=== PATIENT | male | born 1960 | race Two or more races ===

== ENCOUNTER 2016-10-06 19:29 | Observation (INO) | payer OTHER ==
[~2016-10-06] VITALS: Ht 172.7 cm; Wt 83.1 kg
[2016-10-06 19:52] LABS: BASO % 1 % (0-3); EOS % 1 % (0-3); HEMATOCRIT 41.3 % (39.0-53.0); HEMOGLOBIN 14.3 g/dL (13.0-17.5); LYMPH # 1.3 x10^3/uL (1.0-4.8); LYMPH % 20 % (24-48); MEAN CORPUSCULAR HEMOGLOBIN 31 pg (25-35); MEAN CORPUSCULAR HGB CONC 35 g/dL (31-37); MEAN CORPUSCULAR VOLUME 88 fL (79-100); MONO % 5 % (0-9); NEUT % 74 % (31-73); PLATELET COUNT 179 x10^3/uL (140-400); RED BLOOD COUNT 4.68 x10^6/uL (4.30-5.70); RED CELL DISTRIBUTION WIDTH 12.5 % (11.5-14.5); WHITE BLOOD COUNT 6.7 x10^3/uL (4.0-11.0)
[2016-10-06] MEDS ORDERED: IOHEXOL 300 MG/ML 75 ML VIAL IV ONE (20:00)
[2016-10-06 20:07] LABS: CALCIUM 9.1 mg/dL (8.5-10.1); GFR 77.3; POTASSIUM 3.7 mmol/L (3.5-5.1)
[2016-10-06 20:11] LABS: ALBUMIN 4.1 g/dL (3.4-5.0); ALBUMIN/GLOBULIN RATIO 1.1 (1.0-1.7); TOTAL BILIRUBIN 0.8 mg/dL (0.2-1.0)
[2016-10-06] MEDS ORDERED: CONTRAST GIVEN MC PRN (20:15)
--- NOTE | 2016-10-06 20:19 | RAD ---
CT head without intravenous contrast History: Fall, head and neck injury. Comparison: None. Technique: Axial images are obtained of the head from the skull base through the vertex without IV contrast. Exposure: One or more of the following individualized dose reduction techniques were utilized for this examination: 1. Automated exposure control 2. Adjustment of the mA and/or kV according to patient size 3. Use of iterative reconstruction technique Findings: The ventricles are appropriate in size, shape, and location for the patient's age. No obvious intracranial mass, mass-effect, midline shift, hemorrhage or obvious acute infarction is identified. Basilar cisterns are patent. Bone windows demonstrate no acute calvarial abnormality. Incompletely seen is right maxillary sinus disease. Impression: 1. No acute intracranial process. Please note that CT can be relatively insensitive to acute ischemic infarction for up to 24 hours after symptom onset. 2. Paranasal sinus disease. CT cervical spine Comparison: None. Technique: Noncontrast CT of the cervical spine was performed using helical technique. Axial, sagittal, coronal reconstructions were obtained. Exposure: One or more of the following individualized dose reduction techniques were utilized for this examination: 1. Automated exposure control 2. Adjustment of the mA and/or kV according to patient size 3. Use of iterative reconstruction technique Findings: There is no evidence of acute fracture or acute malalignment involving the cervical spine. No prevertebral soft tissue swelling is identified. Mild multilevel degeneration is present with facet and uncovertebral hypertrophy present. Impression: No evidence of acute traumatic injury involving the cervical spine. Electronically signed by: Anthony Contreras MD (10/06/2016 8:16 PM)
[2016-10-06 20:22] LABS: INR 1.1 (0.8-1.1); PROTHROMBIN TIME PATIENT 13.4 SEC (11.7-14.0)
[2016-10-06 20:26] LABS: BARBITURATES NEG (NEG); BENZODIAZEPINES NEG (NEG); CANNABINOIDS NEG (NEG); COCAINE NEG (NEG); METHADONE NEG (NEG); OPIATES NEG (NEG); PHENCYCLIDINE NEG (NEG)
--- NOTE | 2016-10-06 20:39 | RAD ---
CT of the thoracic and lumbar spine History: Trauma, fall from 4-5 feet, pain. Technique: Reconstructions of the thoracic and lumbar spine were made from CT of the chest, abdomen, and pelvis performed with intravenous contrast at the same time. Axial, sagittal, and coronal 2-D reconstructions were obtained of both the thoracic and lumbar spine. Exposure: One or more of the following individualized dose reduction techniques were utilized for this examination: 1. Automated exposure control 2. Adjustment of the mA and/or kV according to patient size 3. Use of iterative reconstruction technique Findings: There is no evidence of acute traumatic injury involving the thoracic spine. Alignment appears anatomic. There are 12 rib-bearing thoracic type vertebral bodies. Multilevel degenerative disc disease is seen with marginal disc osteophytes. There is no evidence of acute traumatic injury involving the lumbar spine. Alignment appears anatomic. There are 5 lumbar-type vertebral bodies. Multilevel facet degeneration is seen. Impression: 1. No evidence of acute traumatic injury to the thoracic or lumbar spine. Electronically signed by: Anthony Contreras MD (10/06/2016 8:36 PM)
--- NOTE | 2016-10-06 20:41 | RAD ---
CT Chest Abdomen Pelvis with Intravenous Contrast: History: Fall from 4-5 foot ladder. Comparison: None. Technique: After administration of intravenous contrast, 75 mL of Omnipaque 300, CT of the chest, abdomen, and pelvis was performed from the lung apices through the ischial tuberosities. Exposure: One or more of the following individualized dose reduction techniques were utilized for this examination: 1. Automated exposure control 2. Adjustment of the mA and/or kV according to patient size 3. Use of iterative reconstruction technique Findings: Evaluation of enteric structures may be limited by lack of oral contrast. There is also streak artifact involving the chest and abdomen secondary to patient's arms which are at his side. Thyroid is symmetric. Trachea and mainstem bronchi appear patent. No mediastinal lymphadenopathy is seen. Thoracic aorta is without evidence of injury. Heart and pericardium are unremarkable. No acute airspace disease is seen. No pneumothorax or pleural effusion is appreciated. Liver, spleen, pancreas, gallbladder, and bilateral adrenal glands are unremarkable. Bilateral kidneys enhance symmetrically. No bowel obstruction or inflammation is identified. Aortic atherosclerosis is seen. Appendix is without evidence of inflammation. Urinary bladder is unremarkable. No free air or free fluid is seen in the abdomen or pelvis. No acute osseous traumatic injury is identified. Impression: No acute traumatic injury identified in the chest, abdomen, or pelvis. Electronically signed by: Anthony Contreras MD (10/06/2016 8:37 PM)
[2016-10-06] MEDS ORDERED: fentaNYL PF VIAL 100 MCG/2 ML VIAL IV ONE (20:45)
[2016-10-06] MEDS ORDERED: ONDANSETRON PF 4 MG/2 ML VIAL. IV ONE (20:45)
--- NOTE | 2016-10-06 21:12 | ED.ADGEN ---
Past Medical History Past Medical History: Other Additional Past Medical Histor: ENCEPHALITIS Past Surgical History: No Surgical History Alcohol Use: None Drug Use: None Adult General Chief Complaint Chief Complaint: TRAUMA ALERT HPI HPI Patient is a 56 year old , alk-Nfgtetr-aficetio female who presents with fall from 6 foot ladder landing on the back of his head with loss of consciousness to 20 minutes according to coworkers. Patient arrives by private vehicle. Patient's GCS on ED arrival is 14. Patient reports headache, neck stiffness, impaired memory. No family weakness or loss of sensation. No chest pain shortness of breath abdominal pain or extremity for me or pain. Past medical history remarkable with exception of encephalitis 4 years ago. She is not on any medications. Additional history obtained from patient spouse via mechanic/welder phone. Review of Systems Review of Systems ROS as per HPI. Current Medications Current Medications Current Medications Medications (Trade) Dose Ordered Sig/Brian Start Time Stop Time Status Last Admin Dose Admin Fentanyl Citrate (Fentanyl 2ml Vial) 75 mcg 1X ONCE 10/06/16 20:45 10/06/16 20:46 DC 10/06/16 20:47 75 MCG Info (Do NOT chart on this entry -- for MONITORING) 1 each PRN DAILY PRN 10/06/16 20:15 10/08/16 20:14 Iohexol (Omnipaque 300 Mg/ml) 75 ml 1X ONCE 10/06/16 20:00 10/06/16 20:03 DC 10/06/16 20:15 75 ML Ondansetron HCl (Zofran) 4 mg 1X ONCE 10/06/16 20:45 10/06/16 20:46 DC 10/06/16 20:47 4 MG Allergies Allergies Allergies Coded Allergies Type Severity Reaction Last Updated Verified No Known Drug Allergies 10/06/16 No Physical Exam Physical Exam Constitutional: Well developed, well nourished, moderate discomfort secondary to pain. HENT: Normocephalic, atraumatic, bilateral external ears normal, oropharynx moist, no oral exudates, nose normal. Eyes: PERRL, pinpoint pupils. Neck: Normal range of motion, diffuse neck pain, tenderness. Cardiovascular:Heart rate regular rhythm, no murmur. Lungs & Thorax: Bilateral breath sounds clear to auscultation. Abdomen: Bowel sounds normal, soft, no tenderness. Skin: Warm, dry. Back: No midline tenderness. Extremities: No deformities. Neurologic: Alert and oriented X 2, normal motor function, normal sensory function, no focal deficits noted. Psychologic: Affect, anxious, tearful. Current Patient Data Vital Signs Vital Signs Date Time Temp Pulse Resp B/P (MAP) Pulse Ox O2 Delivery O2 Flow Rate FiO2 10/06/16 20:47 20 96 Room Air 10/06/16 20:08 76 148/90 (109) 10/06/16 19:33 97.7 97.7 Lab Values Laboratory Tests Test 10/06/16 19:38 10/06/16 20:14 White Blood Count 6.7 x10^3/uL (4.0-11.0) Red Blood Count 4.68 x10^6/uL (4.30-5.70) Hemoglobin 14.3 g/dL (13.0-17.5) Hematocrit 41.3 % (39.0-53.0) Mean Corpuscular Volume 88 fL (79-100) Mean Corpuscular Hemoglobin 31 pg (25-35) Mean Corpuscular Hemoglobin Concent 35 g/dL (31-37) Red Cell Distribution Width 12.5 % (11.5-14.5) Platelet Count 179 x10^3/uL (140-400) Neutrophils (%) (Auto) 74 % (31-73) H Lymphocytes (%) (Auto) 20 % (24-48) L Monocytes (%) (Auto) 5 % (0-9) Eosinophils (%) (Auto) 1 % (0-3) Basophils (%) (Auto) 1 % (0-3) Neutrophils # (Auto) 5.0 x10^3uL (1.8-7.7) Lymphocytes # (Auto) 1.3 x10^3/uL (1.0-4.8) Monocytes # (Auto) 0.3 x10^3/uL (0.0-1.1) Eosinophils # (Auto) 0.1 x10^3/uL (0.0-0.7) Basophils # (Auto) 0.0 x10^3/uL (0.0-0.2) Prothrombin Time 13.4 SEC (11.7-14.0) Prothrombin Time INR 1.1 (0.8-1.1) PTT 29 SEC (24-38) Sodium Level 141 mmol/L (136-145) Potassium Level 3.7 mmol/L (3.5-5.1) Chloride Level 104 mmol/L (98-107) Carbon Dioxide Level 28 mmol/L (21-32) Anion Gap 9 (6-14) Blood Urea Nitrogen 15 mg/dL (8-26) Creatinine 1.0 mg/dL (0.7-1.3) Estimated GFR (Cockcroft-Gault) 77.3 BUN/Creatinine Ratio 15 (6-20) Glucose Level 116 mg/dL (70-99) H Calcium Level 9.1 mg/dL (8.5-10.1) Total Bilirubin 0.8 mg/dL (0.2-1.0) Aspartate Amino Transferase (AST) 28 U/L (15-37) Alanine Aminotransferase (ALT) 45 U/L (16-63) Alkaline Phosphatase 75 U/L (46-116) Total Protein 8.0 g/dL (6.4-8.2) Albumin 4.1 g/dL (3.4-5.0) Albumin/Globulin Ratio 1.1 (1.0-1.7) Ethyl Alcohol Level < 10 mg/dL (0-10) Urine Opiates Screen Neg (NEG) Urine Methadone Screen Neg (NEG) Urine Barbiturates Neg (NEG) Urine Phencyclidine Screen Neg (NEG) Urine Amphetamine/Methamphetamine Neg (NEG) Urine Benzodiazepines Screen Neg (NEG) Urine Cocaine Screen Neg (NEG) Urine Cannabinoids Screen Neg (NEG) Urine Ethyl Alcohol Neg (NEG) Laboratory Tests 10/06/16 19:38 Laboratory Tests 10/06/16 19:38 EKG EKG [] Radiology/Procedures Radiology/Procedures [CT: head/cervical spine/CT chest/abdomen pelvis: No acute injury per radiology report. ] Course & Med Decision Making Course & Med Decision Making Pertinent Labs and Imaging studies reviewed. (See chart for details) [Patient with concussion with persistent retrograde amnesia. CT imaging of head and neck numbness spine, chest abdomen pelvis unremarkable. Pain addressed. Patient will be admitted for serial neuro checks anticipated neurology consultation in the morning if symptoms persist. Case discussed with Dr. Mckeon on-call for general surgery who agrees with plan. Dr. Flores to admit] Kiera Disclaimer Dragon Disclaimer This electronic medical record was generated, in whole or in part, using a voice recognition dictation system. SANCHEZ MENJIVAR DO Oct 06, 2016 21:12
[2016-10-06] MEDS ORDERED: ONDANSETRON PF 4 MG/2 ML VIAL. IV PRN (21:15)
[2016-10-06] MEDS ORDERED: IV DEXTROSE 5 %-0.45 % NACL 1,000 ML IV ONE (21:30)
[2016-10-06] MEDS ORDERED: KETOROLAC 15 MG/ML VIAL. IV ONE (21:30)
--- NOTE | 2016-10-06 22:43 | ACF ---
Admission Forms Criteria ACUTE LOSS OF CONSCIOUSNESS- ALOC Clinical Indications for Inpatient Care (Place 'X' for any and all applicable criteria): Ongoing inpatient care may be needed for ANY ONE of the following(1)(2)(3)(5)(6) : [X]I. Suspected serious etiology (eg, medical disorder, FUR CUTTER event) of mental status change [ ]II. Danger to self or others not manageable at lower level of care [ ]III. Grave disability (eg, inability to perform self care necessary at lower level of care) [ ]IV. Agitation or inappropriate behavior interfering with care for primary condition (eg, attempting to discontinue lines or drains prematurely, unable to cooperate with respiratory care) [ ]V. Delirium [A] [D][E] as described by ANY ONE of the following(26): [ ]a) Delirium due to alcohol or sedative [F] withdrawal [ ]b) Delirium of uncertain etiology that has not responded to appropriate empiric treatment [ ]c) Delirium that prevents performance of a life-sustaining function (eg, feeding or hydrating oneself) [ ]. General contraindications and/or Inappropriate clinical situations for Observational Care in patients with Acute Loss of Consciousness, when ANY ONE of the following is required: [ ]a) Prediction of prolongation of LOS based on ANY ONE of the following may be considered as a contraindication for observational care 2, 3, 4, 5, 6, 7, 8 , 9, 10, 11 [ ]i) Age > 65 yrs. [ ]ii) Patient arriving by ambulance [ ]iii) Patient with high acuity [ ]iv) Patient requiring vital sign monitoring [ ]v) Patient on IV medication [ ]b) Systolic blood pressures 180mmHg 3,12 [ ]c) Patient with altered mental status including delirium and other alteration of consciousness, (3) [ ]d) Patient whose discharge disposition will be to a senior living home or rehabilitation home should not be managed in Emergency Department Observation Unit. CMS rule requires 3 days hospital stay before such placement.3,13 [ ]e) Patient with failure to thrive due to broad array of etiologies 3,16,17 [ ]f) Inability to ambulate 3,14 Extended stay beyond goal length of stay for the primary condition may be needed until ALL of the following are present(3)(5): [ ]a) Underlying medical etiology of mental status change is absent, or has been established and adequately treated [ ]b) Danger to self or others is absent or manageable at lower level of care. [ ]c) Behavior crisis management, including physical or chemical restraints, is not required or available at lower level of car [ ]d) Substance or alcohol withdrawal is absent or manageable at lower level of care. [ ]e) Behavioral symptoms (eg, agitation, somnolence, inappropriate behavior) are absent, or are manageable at lower level of care. The original [facility] Service[employer] content created by [facility] [employer] has been revised. The portions of the content which have been revised are identified through the use of italic text or in bold, and [facility] [employer] has neither reviewed nor approved the modified material. All other unmodified content is copyright [facility] [employer]. Please see references footnoted in the original [facility] [employer] edition 2016 Admission Criteria Met?: Yes PATRICIO CAMACHO Oct 06, 2016 22:43
[2016-10-06 22:45] VITALS: BP 137/83
[2016-10-06] MEDS: fentaNYL PF VIAL 100 MCG/2 ML VIAL IV PRN (22:52)
[2016-10-07] MEDS: fentaNYL PF VIAL 100 MCG/2 ML VIAL IV PRN ×3 (03:29→20:51)
[2016-10-07 03:37] VITALS: BP 144/86
[2016-10-07 04:29] LABS: BASO % 1 % (0-3); EOS % 2 % (0-3); HEMATOCRIT 39.2 % (39.0-53.0); HEMOGLOBIN 13.4 g/dL (13.0-17.5); LYMPH # 1.6 x10^3/uL (1.0-4.8); LYMPH % 30 % (24-48); MEAN CORPUSCULAR HEMOGLOBIN 30 pg (25-35); MEAN CORPUSCULAR HGB CONC 34 g/dL (31-37); MEAN CORPUSCULAR VOLUME 89 fL (79-100); MONO % 6 % (0-9); NEUT % 61 % (31-73); PLATELET COUNT 164 x10^3/uL (140-400); RED BLOOD COUNT 4.41 x10^6/uL (4.30-5.70); RED CELL DISTRIBUTION WIDTH 12.6 % (11.5-14.5); WHITE BLOOD COUNT 5.4 x10^3/uL (4.0-11.0)
[2016-10-07 04:45] LABS: CALCIUM 8.6 mg/dL (8.5-10.1); CREATININE 0.8 mg/dL (0.7-1.3); POTASSIUM 3.7 mmol/L (3.5-5.1)
[2016-10-07 07:00] VITALS: BP 142/83
--- NOTE | 2016-10-07 08:50 | PDOC1 ---
History and Physical Date of Admission Date of Admission DATE: 10/07/16 TIME: 08:48 History of Present Illness History of Present Illness Mr. Alberto, is a 56 year old , grf-Exalhrn-pvrvkhyqkjchb w. confusion after a fall. Was at work on a 6 foot ladder, fell and struck the back of his head with loss of consciousness, possibly 20 min. EMS was not called, some confusion in ER, and amnestic Overnight, headache, neck stiffness, impaired memory He reported a history of encephalitis 4 years ago Past Medical History Cardiovascular: HTN Pulmonary: No pertinent hx GI: No pertinent hx Heme/Onc: No pertinent hx Hepatobiliary: No pertinent hx Psych: No pertinent hx Rheumatologic: No pertinent hx Past Surgical History Past Surgical History: No pertinent history Social History Smoke: No ALCOHOL: none Drugs: None Current Problem List Problem List Problems Medical Problems: (1) Closed head injury with concussion Status: Acute Problems: Current Medications Current Medications Current Medications Iohexol (Omnipaque 300 Mg/ml) 75 ml 1X ONCE IV Last administered on 10/06/16 20:15; Start 10/06/16 at 20:00; Stop 10/06/16 at 20:03; Status DC Info (Do NOT chart on this entry -- for MONITORING) 1 each PRN DAILY PRN MC SEE COMMENTS; Start 10/06/16 at 20:15; Stop 10/08/16 at 20:14 Fentanyl Citrate (Fentanyl 2ml Vial) 75 mcg 1X ONCE IV Last administered on 20:47; Start 10/06/16 at 20:45; Stop 10/06/16 at 20:46; Status DC Ondansetron HCl (Zofran) 4 mg 1X ONCE IV Last administered on 10/06/16 20:47 ; Start 10/06/16 at 20:45; Stop 10/06/16 at 20:46; Status DC Ondansetron HCl (Zofran) 4 mg PRN Q8HRS PRN IV NAUSEA/VOMITING; Start 10/06/16 at 21:15; Stop 10/07/16 at 21:14 Fentanyl Citrate (Fentanyl 2ml Vial) 50 mcg PRN Q2HR PRN IV PAIN Last administered on 10/07/16 08:15; Start 10/06/16 at 21:15; Stop 6/16/17 at 21:14 Ketorolac Tromethamine (Toradol) 15 mg 1X ONCE IV Last administered on 21:34; Start 10/06/16 at 21:30; Stop 10/06/16 at 21:31; Status DC Dextrose/Sodium Chloride 1,000 ml @ 125 mls/hr 1X ONCE IV Last administered on 10/06/16 22:53; Start 10/06/16 at 21:30; Stop 10/07/16 at 05:29; Status DC Allergies Allergies: Coded Allergies: No Known Drug Allergies (Unverified , 10/06/16) ROS General: No: Chills, Night Sweats, Fatigue, Malaise, Appetite, Other PSYCHOLOGICAL ROS: No: Anxiety, Behavioral Disorder, Concentration difficultie , Decreased libido, Depression, Disorientation, Hallucinations, Hostility, Irritablity, Memory difficulties, Mood Swings, Obsessive thoughts, Physical abuse, Sexual abuse, Sleep disturbances, Suicidal ideation, Other Eyes: No Blurry vision, No Decreased vision, No Double vision, No Dry eyes, No Excessive tearing, No Eye Pain, No Itchy Eyes, No Loss of vision, No Photophobia , No Scotomata, No Uses contacts, No Uses glasses, No Other HEENT: YES: Heacaches, No: Visual Changes, Hearing change, Nasal congestion, Nasal discharge, Oral lesions, Sinus pain, Sore Throat, Epistaxis, Sneezing, Snoring, Tinnitus, Vertigo, Vocal changes, Other Respiratory: No: Cough, Hemoptysis, Orthopnea, Pleuritic Pain, Shortness of breath, SOB with excertion, Sputum Changes, Stridor, Tachypnea, Wheezing, Other Gastrointestinal: Yes Nausea, No Vomiting, No Abdominal Pain, No Diarrhea, No Constipation, No Melena, No Hematochezia, No Other Genitourinary: No Dysuria, No Frequency, No Incontinence, No Hematuria, No Retention, No Discharge, No Urgency, No Pain, No Flank Pain, No Other, No , No , No , No , No , No , No Musculoskeletal: No Gait Disturbance, No Joint Pain, No Joint Stiffness, No Joint Swelling, No Muscle Pain, No Muscular Weakness, No Pain In:, No Swelling In:, No Other Neurological: Yes Confusion, Yes Dizziness, Yes Headaches, Yes Memory Loss, No Behavorial Changes, No Bowel/Bladder ControlChng, No Gait Disturbance, No Impaired Coord/balance, No Numbness/Tingling, No Seizures, No Speech Problems, No Tremors, No Visual Changes, No Weakness, No Other Skin: No Dry Skin, No Eczema, No Hair Changes, No Lumps, No Mole Changes, No Mottling, No Nail Changes, No Pruritus, No Rash, No Skin Lesion Changes, No Other, No Acne Physical Exam General: Alert, Oriented X3, Cooperative HEENT: Atraumatic, PERRLA, EOMI, Mucous membr. moist/pink Lungs: Normal air movement Heart: no gallops, no murmurs Extremities: No clubbing, No edema Skin: No rashes, No significant lesion Neuro: Normal gait, Normal speech, Normal tone, Cranial nerves 3-12 NL Psych/Mental Status: Mood NL Vitals Vitals Vital Signs Date Time Temp Pulse Resp B/P (MAP) Pulse Ox O2 Delivery O2 Flow Rate FiO2 10/07/16 08:15 96 Room Air 10/07/16 07:00 98.0 59 18 142/83 (102) 98.0 Labs Labs Laboratory Tests Test 10/06/16 19:38 10/06/16 20:14 10/07/16 04:00 White Blood Count 6.7 x10^3/uL (4.0-11.0) 5.4 x10^3/uL (4.0-11.0) Red Blood Count 4.68 x10^6/uL (4.30-5.70) 4.41 x10^6/uL (4.30-5.70) Hemoglobin 14.3 g/dL (13.0-17.5) 13.4 g/dL (13.0-17.5) Hematocrit 41.3 % (39.0-53.0) 39.2 % (39.0-53.0) Mean Corpuscular Volume 88 fL (79-100) 89 fL (79-100) Mean Corpuscular Hemoglobin 31 pg (25-35) 30 pg (25-35) Mean Corpuscular Hemoglobin Concent 35 g/dL (31-37) 34 g/dL (31-37) Red Cell Distribution Width 12.5 % (11.5-14.5) 12.6 % (11.5-14.5) Platelet Count 179 x10^3/uL (140-400) 164 x10^3/uL (140-400) Neutrophils (%) (Auto) 74 % (31-73) 61 % (31-73) Lymphocytes (%) (Auto) 20 % (24-48) 30 % (24-48) Monocytes (%) (Auto) 5 % (0-9) 6 % (0-9) Eosinophils (%) (Auto) 1 % (0-3) 2 % (0-3) Basophils (%) (Auto) 1 % (0-3) 1 % (0-3) Neutrophils # (Auto) 5.0 x10^3uL (1.8-7.7) 3.3 x10^3uL (1.8-7.7) Lymphocytes # (Auto) 1.3 x10^3/uL (1.0-4.8) 1.6 x10^3/uL (1.0-4.8) Monocytes # (Auto) 0.3 x10^3/uL (0.0-1.1) 0.3 x10^3/uL (0.0-1.1) Eosinophils # (Auto) 0.1 x10^3/uL (0.0-0.7) 0.1 x10^3/uL (0.0-0.7) Basophils # (Auto) 0.0 x10^3/uL (0.0-0.2) 0.0 x10^3/uL (0.0-0.2) Prothrombin Time 13.4 SEC (11.7-14.0) Prothromb Time International Ratio 1.1 (0.8-1.1) Activated Partial Thromboplast Time 29 SEC (24-38) Sodium Level 141 mmol/L (136-145) 140 mmol/L (136-145) Potassium Level 3.7 mmol/L (3.5-5.1) 3.7 mmol/L (3.5-5.1) Chloride Level 104 mmol/L (98-107) 105 mmol/L (98-107) Carbon Dioxide Level 28 mmol/L (21-32) 28 mmol/L (21-32) Anion Gap 9 (6-14) 7 (6-14) Blood Urea Nitrogen 15 mg/dL (8-26) 15 mg/dL (8-26) Creatinine 1.0 mg/dL (0.7-1.3) 0.8 mg/dL (0.7-1.3) Estimated GFR (Cockcroft-Gault) 77.3 100.0 BUN/Creatinine Ratio 15 (6-20) Glucose Level 116 mg/dL (70-99) 150 mg/dL (70-99) Calcium Level 9.1 mg/dL (8.5-10.1) 8.6 mg/dL (8.5-10.1) Total Bilirubin 0.8 mg/dL (0.2-1.0) Aspartate Amino Transf (AST/SGOT) 28 U/L (15-37) Alanine Aminotransferase (ALT/SGPT) 45 U/L (16-63) Alkaline Phosphatase 75 U/L (46-116) Total Protein 8.0 g/dL (6.4-8.2) Albumin 4.1 g/dL (3.4-5.0) Albumin/Globulin Ratio 1.1 (1.0-1.7) Ethyl Alcohol Level < 10 mg/dL (0-10) Urine Opiates Screen Neg (NEG) Urine Methadone Screen Neg (NEG) Urine Barbiturates Neg (NEG) Urine Phencyclidine Screen Neg (NEG) Urine Amphetamine/Methamphetamine Neg (NEG) Urine Benzodiazepines Screen Neg (NEG) Urine Cocaine Screen Neg (NEG) Urine Cannabinoids Screen Neg (NEG) Urine Ethyl Alcohol Neg (NEG) Laboratory Tests Test 10/06/16 19:38 10/06/16 20:14 10/07/16 04:00 White Blood Count 6.7 x10^3/uL (4.0-11.0) 5.4 x10^3/uL (4.0-11.0) Red Blood Count 4.68 x10^6/uL (4.30-5.70) 4.41 x10^6/uL (4.30-5.70) Hemoglobin 14.3 g/dL (13.0-17.5) 13.4 g/dL (13.0-17.5) Hematocrit 41.3 % (39.0-53.0) 39.2 % (39.0-53.0) Mean Corpuscular Volume 88 fL (79-100) 89 fL (79-100) Mean Corpuscular Hemoglobin 31 pg (25-35) 30 pg (25-35) Mean Corpuscular Hemoglobin Concent 35 g/dL (31-37) 34 g/dL (31-37) Red Cell Distribution Width 12.5 % (11.5-14.5) 12.6 % (11.5-14.5) Platelet Count 179 x10^3/uL (140-400) 164 x10^3/uL (140-400) Neutrophils (%) (Auto) 74 % (31-73) 61 % (31-73) Lymphocytes (%) (Auto) 20 % (24-48) 30 % (24-48) Monocytes (%) (Auto) 5 % (0-9) 6 % (0-9) Eosinophils (%) (Auto) 1 % (0-3) 2 % (0-3) Basophils (%) (Auto) 1 % (0-3) 1 % (0-3) Neutrophils # (Auto) 5.0 x10^3uL (1.8-7.7) 3.3 x10^3uL (1.8-7.7) Lymphocytes # (Auto) 1.3 x10^3/uL (1.0-4.8) 1.6 x10^3/uL (1.0-4.8) Monocytes # (Auto) 0.3 x10^3/uL (0.0-1.1) 0.3 x10^3/uL (0.0-1.1) Eosinophils # (Auto) 0.1 x10^3/uL (0.0-0.7) 0.1 x10^3/uL (0.0-0.7) Basophils # (Auto) 0.0 x10^3/uL (0.0-0.2) 0.0 x10^3/uL (0.0-0.2) Prothrombin Time 13.4 SEC (11.7-14.0) Prothromb Time International Ratio 1.1 (0.8-1.1) Activated Partial Thromboplast Time 29 SEC (24-38) Sodium Level 141 mmol/L (136-145) 140 mmol/L (136-145) Potassium Level 3.7 mmol/L (3.5-5.1) 3.7 mmol/L (3.5-5.1) Chloride Level 104 mmol/L (98-107) 105 mmol/L (98-107) Carbon Dioxide Level 28 mmol/L (21-32) 28 mmol/L (21-32) Anion Gap 9 (6-14) 7 (6-14) Blood Urea Nitrogen 15 mg/dL (8-26) 15 mg/dL (8-26) Creatinine 1.0 mg/dL (0.7-1.3) 0.8 mg/dL (0.7-1.3) Estimated GFR (Cockcroft-Gault) 77.3 100.0 BUN/Creatinine Ratio 15 (6-20) Glucose Level 116 mg/dL (70-99) 150 mg/dL (70-99) Calcium Level 9.1 mg/dL (8.5-10.1) 8.6 mg/dL (8.5-10.1) Total Bilirubin 0.8 mg/dL (0.2-1.0) Aspartate Amino Transf (AST/SGOT) 28 U/L (15-37) Alanine Aminotransferase (ALT/SGPT) 45 U/L (16-63) Alkaline Phosphatase 75 U/L (46-116) Total Protein 8.0 g/dL (6.4-8.2) Albumin 4.1 g/dL (3.4-5.0) Albumin/Globulin Ratio 1.1 (1.0-1.7) Ethyl Alcohol Level < 10 mg/dL (0-10) Urine Opiates Screen Neg (NEG) Urine Methadone Screen Neg (NEG) Urine Barbiturates Neg (NEG) Urine Phencyclidine Screen Neg (NEG) Urine Amphetamine/Methamphetamine Neg (NEG) Urine Benzodiazepines Screen Neg (NEG) Urine Cocaine Screen Neg (NEG) Urine Cannabinoids Screen Neg (NEG) Urine Ethyl Alcohol Neg (NEG) VTE Prophylaxis Ordered VTE Prophylaxis Devices: No VTE Pharmacological Prophylaxi: Yes Assessment/Plan Assessment/Plan fall from ladder, head injury, concussion, headache, pain control neuro consult for post-concussive syndrome Trauma team to [facility] pt feels improved NEEMA HILL MD Oct 07, 2016 08:50
[2016-10-07 11:00] VITALS: BP 130/78
[2016-10-07] MEDS: oxyCODONE/APAP 5/325 1 TAB TABLET PO PRN ×2 (11:51→19:02)
--- NOTE | 2016-10-07 11:53 | PDOC2 ---
CONSULT Date of Consult Date of Consult DATE: 10/07/16 TIME: 11:46 Reason for Consult Reason for Consult: trauma Referring Physician Referring Physician: ER Identification/Chief Complaint Chief Complaint fall Source Source: Chart review, Patient History of Present Illness Reason for Visit: Nursing staff provided interpretation for patient Fall from ladder, hit head, + LOC for 20 minutes He reports continued dull pain to top of head, neck, shoulders, and mid back + nausea, some worsening of his blurred vision no abdominal pain Past Medical History Cardiovascular: HTN Pulmonary: No pertinent hx GI: No pertinent hx Heme/Onc: No pertinent hx Hepatobiliary: No pertinent hx Psych: No pertinent hx Rheumatologic: No pertinent hx Past Surgical History Past Surgical History: No pertinent history Family History Family History: Family History Unknown Social History No ALCOHOL: none Drugs: None Current Problem List Problem List Problems Medical Problems: (1) Closed head injury with concussion Status: Acute Current Medications Current Medications Current Medications Iohexol (Omnipaque 300 Mg/ml) 75 ml 1X ONCE IV Last administered on 10/06/16 20:15; Start 10/06/16 at 20:00; Stop 10/06/16 at 20:03; Status DC Info (Do NOT chart on this entry -- for MONITORING) 1 each PRN DAILY PRN MC SEE COMMENTS; Start 10/06/16 at 20:15; Stop 10/08/16 at 20:14 Fentanyl Citrate (Fentanyl 2ml Vial) 75 mcg 1X ONCE IV Last administered on 20:47; Start 10/06/16 at 20:45; Stop 10/06/16 at 20:46; Status DC Ondansetron HCl (Zofran) 4 mg 1X ONCE IV Last administered on 10/06/16 20:47 ; Start 10/06/16 at 20:45; Stop 10/06/16 at 20:46; Status DC Ondansetron HCl (Zofran) 4 mg PRN Q8HRS PRN IV NAUSEA/VOMITING; Start 10/06/16 at 21:15; Stop 10/07/16 at 21:14 Fentanyl Citrate (Fentanyl 2ml Vial) 50 mcg PRN Q2HR PRN IV PAIN Last administered on 10/07/16 08:15; Start 10/06/16 at 21:15; Stop 10/07/16 at 21:14 Ketorolac Tromethamine (Toradol) 15 mg 1X ONCE IV Last administered on 21:34; Start 10/06/16 at 21:30; Stop 10/06/16 at 21:31; Status DC Dextrose/Sodium Chloride 1,000 ml @ 125 mls/hr 1X ONCE IV Last administered on 10/06/16 22:53; Start 10/06/16 at 21:30; Stop 10/07/16 at 05:29; Status DC Oxycodone/ Acetaminophen (Percocet 5/325) 1 tab PRN Q4HRS PRN PO PAIN; Start at 09:15 Allergies Allergies: Coded Allergies: No Known Drug Allergies (Unverified , 10/06/16) ROS General: No: Chills, Other (fevers) PSYCHOLOGICAL ROS: No: Anxiety, Depression Eyes: Yes Blurry vision, No Loss of vision HEENT: YES: Heacaches, Hearing change (feels clogged ), No: Sore Throat Hematological and Lymphatic: No: Bleeding Problems, Blood Clots Respiratory: No: Cough, Shortness of breath Cardiovascular: No Chest Pain, No Palpitations Gastrointestinal: Yes Nausea, No Abdominal Pain Genitourinary: No Dysuria, No Hematuria Musculoskeletal: Yes Joint Pain, Yes Muscle Pain, Yes Other (see hpi) Neurological: Yes Headaches, Yes Numbness/Tingling (upper extremities ) Skin: No Pruritus, No Rash Physical Exam General: Alert, Oriented X3, Cooperative, No acute distress HEENT: Atraumatic, PERRLA, Mucous membr. moist/pink Lungs: Clear to auscultation, Normal air movement Heart: Regular rate, Normal S1, Normal S2, No murmurs Abdomen: Normal bowel sounds, Soft, No tenderness Extremities: No clubbing, No cyanosis Neuro: Other (decreased strength to BUEs, reports it causes pain to his neck to squeeze hands, decreased sensation to BUE, normal strenght and sensation to BLEs) Psych/Mental Status: Mental status NL, Mood NL Vitals VITALS Vital Signs Date Time Temp Pulse Resp B/P (MAP) Pulse Ox O2 Delivery O2 Flow Rate FiO2 10/07/16 11:00 98.1 68 18 130/78 (95) 93 Room Air 98.1 Labs Labs Laboratory Tests Test 10/06/16 19:38 10/06/16 20:14 10/07/16 04:00 White Blood Count 6.7 x10^3/uL (4.0-11.0) 5.4 x10^3/uL (4.0-11.0) Red Blood Count 4.68 x10^6/uL (4.30-5.70) 4.41 x10^6/uL (4.30-5.70) Hemoglobin 14.3 g/dL (13.0-17.5) 13.4 g/dL (13.0-17.5) Hematocrit 41.3 % (39.0-53.0) 39.2 % (39.0-53.0) Mean Corpuscular Volume 88 fL (79-100) 89 fL (79-100) Mean Corpuscular Hemoglobin 31 pg (25-35) 30 pg (25-35) Mean Corpuscular Hemoglobin Concent 35 g/dL (31-37) 34 g/dL (31-37) Red Cell Distribution Width 12.5 % (11.5-14.5) 12.6 % (11.5-14.5) Platelet Count 179 x10^3/uL (140-400) 164 x10^3/uL (140-400) Neutrophils (%) (Auto) 74 % (31-73) 61 % (31-73) Lymphocytes (%) (Auto) 20 % (24-48) 30 % (24-48) Monocytes (%) (Auto) 5 % (0-9) 6 % (0-9) Eosinophils (%) (Auto) 1 % (0-3) 2 % (0-3) Basophils (%) (Auto) 1 % (0-3) 1 % (0-3) Neutrophils # (Auto) 5.0 x10^3uL (1.8-7.7) 3.3 x10^3uL (1.8-7.7) Lymphocytes # (Auto) 1.3 x10^3/uL (1.0-4.8) 1.6 x10^3/uL (1.0-4.8) Monocytes # (Auto) 0.3 x10^3/uL (0.0-1.1) 0.3 x10^3/uL (0.0-1.1) Eosinophils # (Auto) 0.1 x10^3/uL (0.0-0.7) 0.1 x10^3/uL (0.0-0.7) Basophils # (Auto) 0.0 x10^3/uL (0.0-0.2) 0.0 x10^3/uL (0.0-0.2) Prothrombin Time 13.4 SEC (11.7-14.0) Prothromb Time International Ratio 1.1 (0.8-1.1) Activated Partial Thromboplast Time 29 SEC (24-38) Sodium Level 141 mmol/L (136-145) 140 mmol/L (136-145) Potassium Level 3.7 mmol/L (3.5-5.1) 3.7 mmol/L (3.5-5.1) Chloride Level 104 mmol/L (98-107) 105 mmol/L (98-107) Carbon Dioxide Level 28 mmol/L (21-32) 28 mmol/L (21-32) Anion Gap 9 (6-14) 7 (6-14) Blood Urea Nitrogen 15 mg/dL (8-26) 15 mg/dL (8-26) Creatinine 1.0 mg/dL (0.7-1.3) 0.8 mg/dL (0.7-1.3) Estimated GFR (Cockcroft-Gault) 77.3 100.0 BUN/Creatinine Ratio 15 (6-20) Glucose Level 116 mg/dL (70-99) 150 mg/dL (70-99) Calcium Level 9.1 mg/dL (8.5-10.1) 8.6 mg/dL (8.5-10.1) Total Bilirubin 0.8 mg/dL (0.2-1.0) Aspartate Amino Transf (AST/SGOT) 28 U/L (15-37) Alanine Aminotransferase (ALT/SGPT) 45 U/L (16-63) Alkaline Phosphatase 75 U/L (46-116) Total Protein 8.0 g/dL (6.4-8.2) Albumin 4.1 g/dL (3.4-5.0) Albumin/Globulin Ratio 1.1 (1.0-1.7) Ethyl Alcohol Level < 10 mg/dL (0-10) Urine Opiates Screen Neg (NEG) Urine Methadone Screen Neg (NEG) Urine Barbiturates Neg (NEG) Urine Phencyclidine Screen Neg (NEG) Urine Amphetamine/Methamphetamine Neg (NEG) Urine Benzodiazepines Screen Neg (NEG) Urine Cocaine Screen Neg (NEG) Urine Cannabinoids Screen Neg (NEG) Urine Ethyl Alcohol Neg (NEG) Laboratory Tests Test 10/06/16 19:38 10/06/16 20:14 10/07/16 04:00 White Blood Count 6.7 x10^3/uL (4.0-11.0) 5.4 x10^3/uL (4.0-11.0) Red Blood Count 4.68 x10^6/uL (4.30-5.70) 4.41 x10^6/uL (4.30-5.70) Hemoglobin 14.3 g/dL (13.0-17.5) 13.4 g/dL (13.0-17.5) Hematocrit 41.3 % (39.0-53.0) 39.2 % (39.0-53.0) Mean Corpuscular Volume 88 fL (79-100) 89 fL (79-100) Mean Corpuscular Hemoglobin 31 pg (25-35) 30 pg (25-35) Mean Corpuscular Hemoglobin Concent 35 g/dL (31-37) 34 g/dL (31-37) Red Cell Distribution Width 12.5 % (11.5-14.5) 12.6 % (11.5-14.5) Platelet Count 179 x10^3/uL (140-400) 164 x10^3/uL (140-400) Neutrophils (%) (Auto) 74 % (31-73) 61 % (31-73) Lymphocytes (%) (Auto) 20 % (24-48) 30 % (24-48) Monocytes (%) (Auto) 5 % (0-9) 6 % (0-9) Eosinophils (%) (Auto) 1 % (0-3) 2 % (0-3) Basophils (%) (Auto) 1 % (0-3) 1 % (0-3) Neutrophils # (Auto) 5.0 x10^3uL (1.8-7.7) 3.3 x10^3uL (1.8-7.7) Lymphocytes # (Auto) 1.3 x10^3/uL (1.0-4.8) 1.6 x10^3/uL (1.0-4.8) Monocytes # (Auto) 0.3 x10^3/uL (0.0-1.1) 0.3 x10^3/uL (0.0-1.1) Eosinophils # (Auto) 0.1 x10^3/uL (0.0-0.7) 0.1 x10^3/uL (0.0-0.7) Basophils # (Auto) 0.0 x10^3/uL (0.0-0.2) 0.0 x10^3/uL (0.0-0.2) Prothrombin Time 13.4 SEC (11.7-14.0) Prothromb Time International Ratio 1.1 (0.8-1.1) Activated Partial Thromboplast Time 29 SEC (24-38) Sodium Level 141 mmol/L (136-145) 140 mmol/L (136-145) Potassium Level 3.7 mmol/L (3.5-5.1) 3.7 mmol/L (3.5-5.1) Chloride Level 104 mmol/L (98-107) 105 mmol/L (98-107) Carbon Dioxide Level 28 mmol/L (21-32) 28 mmol/L (21-32) Anion Gap 9 (6-14) 7 (6-14) Blood Urea Nitrogen 15 mg/dL (8-26) 15 mg/dL (8-26) Creatinine 1.0 mg/dL (0.7-1.3) 0.8 mg/dL (0.7-1.3) Estimated GFR (Cockcroft-Gault) 77.3 100.0 BUN/Creatinine Ratio 15 (6-20) Glucose Level 116 mg/dL (70-99) 150 mg/dL (70-99) Calcium Level 9.1 mg/dL (8.5-10.1) 8.6 mg/dL (8.5-10.1) Total Bilirubin 0.8 mg/dL (0.2-1.0) Aspartate Amino Transf (AST/SGOT) 28 U/L (15-37) Alanine Aminotransferase (ALT/SGPT) 45 U/L (16-63) Alkaline Phosphatase 75 U/L (46-116) Total Protein 8.0 g/dL (6.4-8.2) Albumin 4.1 g/dL (3.4-5.0) Albumin/Globulin Ratio 1.1 (1.0-1.7) Ethyl Alcohol Level < 10 mg/dL (0-10) Urine Opiates Screen Neg (NEG) Urine Methadone Screen Neg (NEG) Urine Barbiturates Neg (NEG) Urine Phencyclidine Screen Neg (NEG) Urine Amphetamine/Methamphetamine Neg (NEG) Urine Benzodiazepines Screen Neg (NEG) Urine Cocaine Screen Neg (NEG) Urine Cannabinoids Screen Neg (NEG) Urine Ethyl Alcohol Neg (NEG) Images Images no acute findings on imaging Assessment/Plan Assessment/Plan trauma, closed head injury, fall from ladder, continued neck pain, decreased motor function to BUE's no gen surg needs will consult neurosurgery for evaluation WILLIAN MARQUES APRN Oct 07, 2016 11:53
--- NOTE | 2016-10-07 12:38 | PDOC ---
SUBJECTIVE Subjective Pt seen/examined. Full consult to follow. 56M with BUE tingling s/p fall from ladder -CT negative for fracture -will check MRI c-spine OBJECTIVE Vital Signs Vital Signs Date Time Temp Pulse Resp B/P (MAP) Pulse Ox O2 Delivery O2 Flow Rate FiO2 10/07/16 11:51 93 Room Air 10/07/16 11:00 98.1 68 18 130/78 (95) 93 Room Air 98.1 10/07/16 09:20 96 Room Air 10/07/16 08:15 96 Room Air 10/07/16 08:00 Room Air 10/07/16 07:00 98.0 59 18 142/83 (102) 96 Room Air 98.0 10/07/16 03:37 97.7 59 16 144/86 (105) 95 Room Air 97.7 10/07/16 03:29 Room Air 10/07/16 00:02 Room Air 10/06/16 23:09 Room Air 10/06/16 22:52 Room Air 10/06/16 22:45 98.1 65 16 137/83 (101) 95 Room Air 98.1 10/06/16 22:31 64 16 131/82 (98) 94 Room Air 10/06/16 22:23 64 16 130/80 (97) 95 Room Air 10/06/16 22:08 66 13 129/78 (95) 94 Room Air 10/06/16 21:53 68 14 134/78 (96) 93 Room Air 10/06/16 21:38 66 14 123/75 (91) 93 Room Air 10/06/16 21:23 68 12 128/79 (95) 93 Room Air 10/06/16 21:08 70 12 128/80 (96) 91 Room Air 10/06/16 20:53 73 13 150/89 (109) 90 Room Air 10/06/16 20:47 20 96 Room Air 10/06/16 20:38 68 14 137/83 (101) 98 Room Air 10/06/16 20:23 68 22 144/88 (106) 97 Room Air 10/06/16 20:08 76 17 148/90 (109) 96 Room Air 10/06/16 19:53 74 17 140/94 (109) 95 Room Air 10/06/16 19:33 97.7 68 20 155/97 (116) 94 Room Air 97.7 I & O Intake and Output 10/07/16 07:00 Intake Total 0 ml Output Total 300 ml Balance -300 ml Intake Oral 0 ml Output Urine Total 300 ml COMMENT Lab Laboratory Tests Test 10/06/16 19:38 10/06/16 20:14 10/07/16 04:00 White Blood Count 6.7 x10^3/uL (4.0-11.0) 5.4 x10^3/uL (4.0-11.0) Red Blood Count 4.68 x10^6/uL (4.30-5.70) 4.41 x10^6/uL (4.30-5.70) Hemoglobin 14.3 g/dL (13.0-17.5) 13.4 g/dL (13.0-17.5) Hematocrit 41.3 % (39.0-53.0) 39.2 % (39.0-53.0) Mean Corpuscular Volume 88 fL (79-100) 89 fL (79-100) Mean Corpuscular Hemoglobin 31 pg (25-35) 30 pg (25-35) Mean Corpuscular Hemoglobin Concent 35 g/dL (31-37) 34 g/dL (31-37) Red Cell Distribution Width 12.5 % (11.5-14.5) 12.6 % (11.5-14.5) Platelet Count 179 x10^3/uL (140-400) 164 x10^3/uL (140-400) Neutrophils (%) (Auto) 74 % (31-73) 61 % (31-73) Lymphocytes (%) (Auto) 20 % (24-48) 30 % (24-48) Monocytes (%) (Auto) 5 % (0-9) 6 % (0-9) Eosinophils (%) (Auto) 1 % (0-3) 2 % (0-3) Basophils (%) (Auto) 1 % (0-3) 1 % (0-3) Neutrophils # (Auto) 5.0 x10^3uL (1.8-7.7) 3.3 x10^3uL (1.8-7.7) Lymphocytes # (Auto) 1.3 x10^3/uL (1.0-4.8) 1.6 x10^3/uL (1.0-4.8) Monocytes # (Auto) 0.3 x10^3/uL (0.0-1.1) 0.3 x10^3/uL (0.0-1.1) Eosinophils # (Auto) 0.1 x10^3/uL (0.0-0.7) 0.1 x10^3/uL (0.0-0.7) Basophils # (Auto) 0.0 x10^3/uL (0.0-0.2) 0.0 x10^3/uL (0.0-0.2) Prothrombin Time 13.4 SEC (11.7-14.0) Prothromb Time International Ratio 1.1 (0.8-1.1) Activated Partial Thromboplast Time 29 SEC (24-38) Sodium Level 141 mmol/L (136-145) 140 mmol/L (136-145) Potassium Level 3.7 mmol/L (3.5-5.1) 3.7 mmol/L (3.5-5.1) Chloride Level 104 mmol/L (98-107) 105 mmol/L (98-107) Carbon Dioxide Level 28 mmol/L (21-32) 28 mmol/L (21-32) Anion Gap 9 (6-14) 7 (6-14) Blood Urea Nitrogen 15 mg/dL (8-26) 15 mg/dL (8-26) Creatinine 1.0 mg/dL (0.7-1.3) 0.8 mg/dL (0.7-1.3) Estimated GFR (Cockcroft-Gault) 77.3 100.0 BUN/Creatinine Ratio 15 (6-20) Glucose Level 116 mg/dL (70-99) 150 mg/dL (70-99) Calcium Level 9.1 mg/dL (8.5-10.1) 8.6 mg/dL (8.5-10.1) Total Bilirubin 0.8 mg/dL (0.2-1.0) Aspartate Amino Transf (AST/SGOT) 28 U/L (15-37) Alanine Aminotransferase (ALT/SGPT) 45 U/L (16-63) Alkaline Phosphatase 75 U/L (46-116) Total Protein 8.0 g/dL (6.4-8.2) Albumin 4.1 g/dL (3.4-5.0) Albumin/Globulin Ratio 1.1 (1.0-1.7) Ethyl Alcohol Level < 10 mg/dL (0-10) Urine Opiates Screen Neg (NEG) Urine Methadone Screen Neg (NEG) Urine Barbiturates Neg (NEG) Urine Phencyclidine Screen Neg (NEG) Urine Amphetamine/Methamphetamine Neg (NEG) Urine Benzodiazepines Screen Neg (NEG) Urine Cocaine Screen Neg (NEG) Urine Cannabinoids Screen Neg (NEG) Urine Ethyl Alcohol Neg (NEG) NATALIO BLANCA MD Oct 07, 2016 12:38
--- NOTE | 2016-10-07 14:49 | PDOC2 ---
NEUROLOGY CONSULT Date of Admission Date of Admission DATE: 10/07/16 TIME: 14:41 Reason for Consult Reason for Consult: IMPRESSION: Concussion. Headache. Neck pain Decreased sensory in UE and chest. RECOMMENDATIONS/PLAN: C-spine MRI w/wo contrast. Pain control. Consulted Neurosurgery. OT/PT HISTORY OF THE PRESENT ILLNESS: 56-y-old [place] origin male patient had a fall from ladder. He stated he lost consciousness for about 10 to 20 minutes. He said he did not remember symptoms whether he had as syncope, dizziness, black out, etc. before falling. His HCT, CCT, TCT and LCT are all normal. No vomiting reported. No urinary or bowel dysfunction. No motor deficits. PAST MEDICAL HISTORY: Please see above. PAST SURGERY HISTORY: No major surgery recently. ALLERGY: Unknown MEDICATIONS: Refer to [facility] FAMILY HISTORY: Non contributory. SOCIAL HISTORY: Lives at home. Denies current smoking, drinking, and illicit drug use. REVIEW OF SYSTEMS: Constitutional: No malnutrition, weight loss, cachexia. Head: No traumatic brain or head injury. Skin: No edema, or rash. Ear: No infection. Eyes: No vision loss or color blindness. Nose: No bleeding or purulent discharges. Hearing: No hearing decrease. Neck: No injury. Cardiac: No DE, arrhythmia. Pulmonary: No COPD. GI: No GI ulcer, GI bleeding. Urinary/genital: No dysuria, incontinence, urinary retention. Endocrinologic: No cousin face, craniofacial dysmorphism, polydactyly. Skeletomuscular: No muscular atrophy, deformity. Neurological: see HP. Psychiatric: Denies drug use/abuse. Otherwise, not [id number] review of systems. PHYSICAL EXAMINATION: General appearance is in subacute distress. HEENT: Normocephalic and nontraumatic. Eyes, nose, ears, and throat are unremarkable. Neck is supple. No lymphadenopathy. No bruits are heard over the carotid artery. No crepitus. Cardiovascular: S1, S2, regular rate and rhythm. Pulmonary: Clear to auscultation bilaterally. Abdomen: Bowel sounds are positive. Extremities: No rash, lesions, or edema. No restriction of range of motion NEUROLOGICAL EXAMINATION: Alert Oriented to time, place and person. PERRL. EOMI. CN: no focal findings. Muscle tone: within normal. Muscle strength: 5 DTR: 2- Plantar reflex: Flexor response bilaterally Gait: not examined in bed. Sensory exam: Decreased to light touch and vibration sense in UE and chest area. Normal in lower abdomen and LE. No cerebellar signs elicited. F-T-N test fine. Current Medications Current Medications Current Medications Iohexol (Omnipaque 300 Mg/ml) 75 ml 1X ONCE IV Last administered on 10/06/16 20:15; Start 10/06/16 at 20:00; Stop 10/06/16 at 20:03; Status DC Info (Do NOT chart on this entry -- for MONITORING) 1 each PRN DAILY PRN MC SEE COMMENTS; Start 10/06/16 at 20:15; Stop 10/08/16 at 20:14 Fentanyl Citrate (Fentanyl 2ml Vial) 75 mcg 1X ONCE IV Last administered on 20:47; Start 10/06/16 at 20:45; Stop 10/06/16 at 20:46; Status DC Ondansetron HCl (Zofran) 4 mg 1X ONCE IV Last administered on 10/06/16 20:47 ; Start 10/06/16 at 20:45; Stop 10/06/16 at 20:46; Status DC Ondansetron HCl (Zofran) 4 mg PRN Q8HRS PRN IV NAUSEA/VOMITING; Start 10/06/16 at 21:15; Stop 10/07/16 at 21:14 Fentanyl Citrate (Fentanyl 2ml Vial) 50 mcg PRN Q2HR PRN IV PAIN Last administered on 10/07/16 08:15; Start 10/06/16 at 21:15; Stop 10/07/16 at 21:14 Ketorolac Tromethamine (Toradol) 15 mg 1X ONCE IV Last administered on 21:34; Start 10/06/16 at 21:30; Stop 10/06/16 at 21:31; Status DC Dextrose/Sodium Chloride 1,000 ml @ 125 mls/hr 1X ONCE IV Last administered on 10/06/16 22:53; Start 10/06/16 at 21:30; Stop 10/07/16 at 05:29; Status DC Oxycodone/ Acetaminophen (Percocet 5/325) 1 tab PRN Q4HRS PRN PO PAIN Last administered on 10/07/16 11:51; Start 10/07/16 at 09:15 Allergies Allergies: Coded Allergies: No Known Drug Allergies (Unverified , 10/06/16) Vitals VITALS Vital Signs Date Time Temp Pulse Resp B/P (MAP) Pulse Ox O2 Delivery O2 Flow Rate FiO2 10/07/16 12:57 93 Room Air 10/07/16 11:00 98.1 68 18 130/78 (95) 98.1 Labs Labs Laboratory Tests Test 10/06/16 19:38 10/06/16 20:14 10/07/16 04:00 White Blood Count 6.7 x10^3/uL (4.0-11.0) 5.4 x10^3/uL (4.0-11.0) Red Blood Count 4.68 x10^6/uL (4.30-5.70) 4.41 x10^6/uL (4.30-5.70) Hemoglobin 14.3 g/dL (13.0-17.5) 13.4 g/dL (13.0-17.5) Hematocrit 41.3 % (39.0-53.0) 39.2 % (39.0-53.0) Mean Corpuscular Volume 88 fL (79-100) 89 fL (79-100) Mean Corpuscular Hemoglobin 31 pg (25-35) 30 pg (25-35) Mean Corpuscular Hemoglobin Concent 35 g/dL (31-37) 34 g/dL (31-37) Red Cell Distribution Width 12.5 % (11.5-14.5) 12.6 % (11.5-14.5) Platelet Count 179 x10^3/uL (140-400) 164 x10^3/uL (140-400) Neutrophils (%) (Auto) 74 % (31-73) 61 % (31-73) Lymphocytes (%) (Auto) 20 % (24-48) 30 % (24-48) Monocytes (%) (Auto) 5 % (0-9) 6 % (0-9) Eosinophils (%) (Auto) 1 % (0-3) 2 % (0-3) Basophils (%) (Auto) 1 % (0-3) 1 % (0-3) Neutrophils # (Auto) 5.0 x10^3uL (1.8-7.7) 3.3 x10^3uL (1.8-7.7) Lymphocytes # (Auto) 1.3 x10^3/uL (1.0-4.8) 1.6 x10^3/uL (1.0-4.8) Monocytes # (Auto) 0.3 x10^3/uL (0.0-1.1) 0.3 x10^3/uL (0.0-1.1) Eosinophils # (Auto) 0.1 x10^3/uL (0.0-0.7) 0.1 x10^3/uL (0.0-0.7) Basophils # (Auto) 0.0 x10^3/uL (0.0-0.2) 0.0 x10^3/uL (0.0-0.2) Prothrombin Time 13.4 SEC (11.7-14.0) Prothromb Time International Ratio 1.1 (0.8-1.1) Activated Partial Thromboplast Time 29 SEC (24-38) Sodium Level 141 mmol/L (136-145) 140 mmol/L (136-145) Potassium Level 3.7 mmol/L (3.5-5.1) 3.7 mmol/L (3.5-5.1) Chloride Level 104 mmol/L (98-107) 105 mmol/L (98-107) Carbon Dioxide Level 28 mmol/L (21-32) 28 mmol/L (21-32) Anion Gap 9 (6-14) 7 (6-14) Blood Urea Nitrogen 15 mg/dL (8-26) 15 mg/dL (8-26) Creatinine 1.0 mg/dL (0.7-1.3) 0.8 mg/dL (0.7-1.3) Estimated GFR (Cockcroft-Gault) 77.3 100.0 BUN/Creatinine Ratio 15 (6-20) Glucose Level 116 mg/dL (70-99) 150 mg/dL (70-99) Calcium Level 9.1 mg/dL (8.5-10.1) 8.6 mg/dL (8.5-10.1) Total Bilirubin 0.8 mg/dL (0.2-1.0) Aspartate Amino Transf (AST/SGOT) 28 U/L (15-37) Alanine Aminotransferase (ALT/SGPT) 45 U/L (16-63) Alkaline Phosphatase 75 U/L (46-116) Total Protein 8.0 g/dL (6.4-8.2) Albumin 4.1 g/dL (3.4-5.0) Albumin/Globulin Ratio 1.1 (1.0-1.7) Ethyl Alcohol Level < 10 mg/dL (0-10) Urine Opiates Screen Neg (NEG) Urine Methadone Screen Neg (NEG) Urine Barbiturates Neg (NEG) Urine Phencyclidine Screen Neg (NEG) Urine Amphetamine/Methamphetamine Neg (NEG) Urine Benzodiazepines Screen Neg (NEG) Urine Cocaine Screen Neg (NEG) Urine Cannabinoids Screen Neg (NEG) Urine Ethyl Alcohol Neg (NEG) Laboratory Tests Test 10/06/16 19:38 10/06/16 20:14 10/07/16 04:00 White Blood Count 6.7 x10^3/uL (4.0-11.0) 5.4 x10^3/uL (4.0-11.0) Red Blood Count 4.68 x10^6/uL (4.30-5.70) 4.41 x10^6/uL (4.30-5.70) Hemoglobin 14.3 g/dL (13.0-17.5) 13.4 g/dL (13.0-17.5) Hematocrit 41.3 % (39.0-53.0) 39.2 % (39.0-53.0) Mean Corpuscular Volume 88 fL (79-100) 89 fL (79-100) Mean Corpuscular Hemoglobin 31 pg (25-35) 30 pg (25-35) Mean Corpuscular Hemoglobin Concent 35 g/dL (31-37) 34 g/dL (31-37) Red Cell Distribution Width 12.5 % (11.5-14.5) 12.6 % (11.5-14.5) Platelet Count 179 x10^3/uL (140-400) 164 x10^3/uL (140-400) Neutrophils (%) (Auto) 74 % (31-73) 61 % (31-73) Lymphocytes (%) (Auto) 20 % (24-48) 30 % (24-48) Monocytes (%) (Auto) 5 % (0-9) 6 % (0-9) Eosinophils (%) (Auto) 1 % (0-3) 2 % (0-3) Basophils (%) (Auto) 1 % (0-3) 1 % (0-3) Neutrophils # (Auto) 5.0 x10^3uL (1.8-7.7) 3.3 x10^3uL (1.8-7.7) Lymphocytes # (Auto) 1.3 x10^3/uL (1.0-4.8) 1.6 x10^3/uL (1.0-4.8) Monocytes # (Auto) 0.3 x10^3/uL (0.0-1.1) 0.3 x10^3/uL (0.0-1.1) Eosinophils # (Auto) 0.1 x10^3/uL (0.0-0.7) 0.1 x10^3/uL (0.0-0.7) Basophils # (Auto) 0.0 x10^3/uL (0.0-0.2) 0.0 x10^3/uL (0.0-0.2) Prothrombin Time 13.4 SEC (11.7-14.0) Prothromb Time International Ratio 1.1 (0.8-1.1) Activated Partial Thromboplast Time 29 SEC (24-38) Sodium Level 141 mmol/L (136-145) 140 mmol/L (136-145) Potassium Level 3.7 mmol/L (3.5-5.1) 3.7 mmol/L (3.5-5.1) Chloride Level 104 mmol/L (98-107) 105 mmol/L (98-107) Carbon Dioxide Level 28 mmol/L (21-32) 28 mmol/L (21-32) Anion Gap 9 (6-14) 7 (6-14) Blood Urea Nitrogen 15 mg/dL (8-26) 15 mg/dL (8-26) Creatinine 1.0 mg/dL (0.7-1.3) 0.8 mg/dL (0.7-1.3) Estimated GFR (Cockcroft-Gault) 77.3 100.0 BUN/Creatinine Ratio 15 (6-20) Glucose Level 116 mg/dL (70-99) 150 mg/dL (70-99) Calcium Level 9.1 mg/dL (8.5-10.1) 8.6 mg/dL (8.5-10.1) Total Bilirubin 0.8 mg/dL (0.2-1.0) Aspartate Amino Transf (AST/SGOT) 28 U/L (15-37) Alanine Aminotransferase (ALT/SGPT) 45 U/L (16-63) Alkaline Phosphatase 75 U/L (46-116) Total Protein 8.0 g/dL (6.4-8.2) Albumin 4.1 g/dL (3.4-5.0) Albumin/Globulin Ratio 1.1 (1.0-1.7) Ethyl Alcohol Level < 10 mg/dL (0-10) Urine Opiates Screen Neg (NEG) Urine Methadone Screen Neg (NEG) Urine Barbiturates Neg (NEG) Urine Phencyclidine Screen Neg (NEG) Urine Amphetamine/Methamphetamine Neg (NEG) Urine Benzodiazepines Screen Neg (NEG) Urine Cocaine Screen Neg (NEG) Urine Cannabinoids Screen Neg (NEG) Urine Ethyl Alcohol Neg (NEG) ANDRE RAZO MD Oct 07, 2016 14:49
[2016-10-07 15:00] VITALS: BP 133/86
[2016-10-07] MEDS ORDERED: GADOBUTROL 10 MMOL/10 ML VIAL IV ONE (17:00)
[2016-10-07 19:47] VITALS: BP 135/87
[2016-10-07 23:42] VITALS: BP 132/80
--- NOTE | 2016-10-08 07:41 | RAD ---
MRI Cervical Spine with and without contrast History: Fall, head injury on 10/06/2016, neck pain Technique: Sagittal T1, sagittal T2, sagittal STIR, axial T1, and axial T2-weighted images were acquired of the cervical spine. Post contrast sagittal and axial T1-weighted images were also acquired. Contrast: 8 cc Gadavist Comparison: None Findings: There is motion degradation. Cervical vertebral body stature and AP alignment are adequate. There is no significant focal bone marrow edema. Cervical cord caliber is within normal limits without obvious or expansile signal abnormality, limited evaluation for subtle signal change in motion. There is no enhancement of the cervical cord or in the intervertebral disc spaces. Intervertebral disc spaces are overall maintained. There is likely hemangioma of the T2 vertebral body. There is mucous retention cyst at the floor of the right maxillary sinus, mild mucosal thickening at the floor of the left maxillary sinus. C2-C3: Neural foramina and spinal canal are adequate. C3-C4: Neural foramina and spinal canal are adequate. There is mild right facet hypertrophic change. C4-C5: Neural foramina and spinal canal are adequate. There is facet degenerative change greater on the left. C5-C6: Neural foramina and spinal canal are adequate. C6-C7: Neural foramina and spinal canal are adequate. C7-T1: Neural foramina and spinal canal are adequate. Impression: 1. No significant abnormality is identified. Exam is degraded by motion. Electronically signed by: Harry Galan MD (10/08/2016 7:37 AM)
[2016-10-08 07:43] VITALS: BP 124/76
[2016-10-08] MEDS: oxyCODONE/APAP 5/325 1 TAB TABLET PO PRN (08:08)
[2016-10-08 10:47] VITALS: BP 130/77
--- NOTE | 2016-10-08 12:07 | PDOC ---
SUBJECTIVE Subjective Reports neck stiffness. Otherwise reports arms improved. Denies other changes. OBJECTIVE Objective MRI cervical spine unremarkable without soft tissue injuries, no significant stenoses, no abnormal signal changes Vital Signs Vital Signs Date Time Temp Pulse Resp B/P (MAP) Pulse Ox O2 Delivery O2 Flow Rate FiO2 10/08/16 10:47 98.1 61 16 130/77 (94) 96 Room Air 98.1 10/08/16 08:08 96 Room Air 10/08/16 07:43 98.1 65 16 124/76 (92) 96 Room Air 98.1 10/08/16 03:37 98.2 60 18 96 Room Air 98.2 10/07/16 23:42 56 18 132/80 (97) 97 Room Air 10/07/16 20:52 Room Air 10/07/16 20:51 95 Room Air 10/07/16 20:00 Room Air 10/07/16 19:47 68 18 135/87 (103) 95 Room Air 10/07/16 15:00 98.0 61 18 133/86 (102) 95 Room Air 98.0 10/07/16 12:57 93 I & O Intake and Output 10/08/16 07:00 Intake Total 400 ml Balance 400 ml Intake Oral 400 ml # Voids 2 PHYSICAL EXAM Physical Exam AA, NAD, c-collar removed, some neck stiffness with ROM, JIMENES 5/5, sensation intact LT ASSESSMENT/PLAN Assessment/Plan 56M with neck pain status post fall -neuro stable, imaging unremarkable with no cervical surgical lesions on CT and MRI -may benefit from physical therapy -d/c c-collar, replace if any neuro changes -f/u as needed Problems: NATALIO BLANCA MD Oct 08, 2016 12:07
[2016-10-08] MEDS ORDERED: oxyCODONE/APAP 5/325 1 TAB TABLET PO PRN (13:30)
[2016-10-08] MEDS ORDERED: DOCUSATE SODIUM 100 MG CAPSULE. PO ONE (13:45)
[2016-10-08] MEDS ORDERED: POLYETHYLENE GLYCOL 3350 17 GM PACKET. PO ONE (14:45)
== END 2016-10-08 14:50 | disposition home or self-care (01) ==
LOC: ER 19:29 → 6 SOUTH 21:20
PROVIDERS: ADMIT Internal Medicine; ATTEND Internal Medicine
DX: S06.0X1A Concussion with loss of consciousness of 30 minutes or less, initial encounter (principal); M43.6 Torticollis; I10 Essential (primary) hypertension; Z86.61 Personal history of infections of the central nervous system; W11.XXXA Fall on and from ladder, initial encounter; Y93.89 Activity, other specified; Y92.89 Other specified places as the place of occurrence of the external cause; Y99.8 Other external cause status
CPT/HCPCS: 36415; 70450; 71260; 72125; 72156; 74177; 80048; 80053; 82550; 82607; 82962; 85027; 85610; 85730; 96361; 96374; 96375; 96376; 99285; A9585; G0378; G0480; G0481; J1885; J2405; J3010; J7042; Q9967; G0379